=== PATIENT | male | born 1985 | race Caucasian/White ===

== ENCOUNTER 2025-02-20 23:10 | Emergency (ER) | payer SELFPAY ==
--- NOTE | ~2025-02-20 | XR_ITS ---
CHEST RADIOGRAPH CLINICAL HISTORY: chest pain, dyspnea . COMPARISON: None available TECHNIQUE: Single portable view of the chest. FINDINGS The cardiomediastinal silhouette is unremarkable. The lungs are clear. Visualized osseous structures and soft tissues are unremarkable. IMPRESSION: No focal infiltrate or effusion. Reviewed, dictated and finalized at location A.
--- NOTE | ~2025-02-20 | CT_ITS ---
Clinical Indication: Chest pain, dyspnea CT Scan of the Chest with Contrast: Technique: Contiguous sections were acquired throughout the chest after intravenous administration of 100 cc of Omnipaque 350. Dose reduction technique was used on this scan by utilizing automated expos ure control and iterative reconstruction technique. The dose-length product (DLP) was 521.60 mGy-cm. Findings: There is no evidence of any significant mediastinal, hilar or axillary lymphadenopathy. There is no f illing defect in the pulmonary arterial tree to suggest pulmonary embolus. There is no evidence of ao rtic dissection or aneurysm. There is no evidence of pleural or pericardial effusion. There is an area of mild groundglass attenuation in the left lower lobe. Right lung clear. Images through the upper abdomen reveal no abnormalities. Impression: No evidence of pulmonary embolus, aortic dissection, or aortic aneurysm. Area of groundglass attenuation left lower lobe. This could reflect focal pneumonitis, focal atelecta tic change or postinflammatory change. Correlate clinically. Reviewed, dictated and finalized at location . Impression: No evidence of pulmonary embolus, aortic dissection, or aortic aneurysm. Area of groundglass attenuation left lower lobe. This could reflect focal pneum onitis, focal atelectatic change or postinflammatory change. Correlate clinical ly.
[2025-02-20 23:09] VITALS: BP 154/84; PULSE 62; RESP 15; TEMP 36.7; O2SAT 98
[2025-02-20 23:18] VITALS: O2SAT 98
--- NOTE | 2025-02-20 23:18 | ECG_ITS ---
Test Date: 2025-02-20 23:17:11 Measurements Intervals [place] Rate: 59 P: 56 NV: 164 QRS: 3 QRSD: 115 T: 34 QT: 424 QTc: 421 Interpretive Statements SINUS BRADYCARDIA INCOMPLETE RIGHT BUNDLE BRANCH BLOCK BASELINE WANDER- V1 BORDERLINE ECG No previous ECG available for comparison Electronically Signed On 02-21-2025 05:23:03 CDT by Linwood Lewis D.O.
--- NOTE | 2025-02-20 23:24 | ED.CHESTPAIN ---
HPI - Chest Pain General Chief Complaint: Chest Pain Stated Complaint: CHEST PAIN VS PANIC ATTACK History of Present Illness HPI narrative: 39-year-old male with a reported history of hypertension presents to emergency department via EMS from work for concerns for a panic attack. Patient states he just recently started a new job at [employer]. Tonight while at work he was feeling overwhelmed with the amount of tables he had. States he began having shortness of breath and breathing rapidly. He when outside tried to catch his breath began developing chest tightness and tingling in his left hand. He called his who help to calm him down. States the episode lasted about 15 minutes. EMS was contacted the patient was transported to the ED. Upon arrival to ED he states he has very mild chest tightness and minimal tingling to the left fingers but overall his symptoms have greatly improved. He states he has never had anxiety or panic attack before this concerned that is what happened tonight. He admits to smoking cigarettes for several decades, currently smoking 1 pack per day. Patient states he has not been on medications for his hypertension since he was released from residential in 2011. He has not established with a PCP due to insurance issues. He denies personal or family history of cardiac disease or CVA. Denies abdominal pain. He does endorse a prior history of DVT back in 2011 which sounds unprovoked. He is not on anticoagulants. Related Data Allergies Allergy/AdvReac Type Severity Reaction Status Date / Time No Known Allergies Allergy Verified 02/20/25 23:20 Review of Systems Review of Systems: All systems reviewed & are unremarkable except as noted in HPI and below Exam Narrative: GENERAL: Well-appearing, well-nourished, and in no acute distress. Mildly anxious appearing HEAD: Normocephalic, atraumatic. EYES: EOMI. ENT: Nares clear, no rhinorrhea or epistaxis. Mucous membranes moist. NECK: Supple. CHEST: Clear to auscultation. No respiratory distress. HEART: Regular rate and rhythm. No murmur heard. Normal peripheral pulses. ABDOMEN: Soft, nontender, nondistended, normal active bowel sounds. EXTREMITIES: Normal range of motion. No edema. Radial and DP pulses 2+ SKIN: Warm, dry, no rash. NEURO: No focal deficits. Alert and oriented x4. Strength out of 5 in BUE and BLE. Sensation intact throughout Course Vital Signs Vital signs: Vital Signs Temperature 98.1 F 02/20/25 23:09 Pulse Rate 62 02/20/25 23:09 Respiratory Rate 15 02/20/25 23:09 Blood Pressure 154/84 H 02/20/25 23:09 Pulse Oximetry 98 02/20/25 23:09 Oxygen Delivery Room Air 02/20/25 23:09 Temperature 98.1 F 02/20/25 23:09 Pulse Rate 60 02/21/25 01:18 Respiratory Rate 15 02/21/25 01:18 Blood Pressure 131/75 02/21/25 01:18 Pulse Oximetry 95 02/21/25 01:18 Oxygen Delivery Room Air 02/20/25 23:18 MDM - Chest Pain MDM Narrative Medical decision making narrative: 39-year-old male with a history of hypertension presents to the emergency department via EMS from work for concerns for panic attack. Patient began developing rapid breathing and chest tightness after feeling overwhelmed at work. The episode lasted 15 minutes. Reports associated left hand tingling. Upon arrival to the ED the patient states he largely feels better but does have some mild residual chest tightness and left hand tingling. He is neurovascularly intact. EKG shows sinus bradycardia with a rate of 59 ppm, normal MT interval, normal QRS duration, normal QTC, no ischemic changes. Troponin is undetectable. CBC unremarkable. Chemistries with signs of mild dehydration, fluids provided. Lipase within normal limits. Chest x-ray shows no acute cardiopulmonary findings. Given chest pain with reported tingling to the left upper extremity along with history of VTE, CTA chest obtained to rule out dissection and PE obtained. CTA is unremarkable. Patient's presentation most consistent with panic attack. Chest pain is atypical. Heart score is 1. He was given Ativan with significant improvement and is resting comfortably in exam bed. Patient will be discharged home with prescription for hydroxyzine p.r.n. and PCP follow-up. Return precautions discussed. He is agreeable with the plan verbalized understanding. Discharged in stable condition. Lab Data 02/20/25 23:38 02/20/25 23:38 Labs: Lab Results 02/20/25 Range/Units 23:38 WBC 9.5 (4.5-10.0) K/mm3 RBC 5.13 (4.6-6.20) M/mm3 Hgb 15.1 (14.0-18.0) g/dL Hct 43.9 (42.0-52.0) % MCV 85.6 (80-100) fl MCH 29.4 (26-34) pg MCHC 34.4 (32-36) g/dl RDW 12.5 (11.5-14.5) % Plt Count 297 (150-375) k/mm3 MPV 9.3 (7.4-10.4) fl Immature Gran % (Auto) 0.5 (0-0.5) % Neut % (Auto) 65.9 (45.5-73.1) % Lymph % (Auto) 23.8 (18.3-44.2) % [place] % (Auto) 7.0 (2.6-8.5) % Eos % (Auto) 2.1 (0-4.4) % Baso % (Auto) 0.7 (0.2-1.2) % Lymph # (Auto) 2.27 (0.9-3.2) K/mm3 [place] # (Auto) 0.7 H (0.1-0.6) K/mm3 Eos # (Auto) 0.2 (0-0.3) K/mm3 Baso # (Auto) 0.1 (0.0-0.1) K/mm3 Abs Immat Gran (auto) 0.05 H (0.00-0.031) K/mm3 Absolute Neuts (auto) 6.3 (1.3-6.7) K/mm3 Absolute Nucleated RBC 0.000 (0.0-0.012) K/mm3 Nucleated RBC % 0.0 (0.0-0.2) % PT 12.8 (11.1-14.7) Seconds INR 0.9 APTT 33.0 (22.3-36.8) Seconds Sodium 139 (137-145) mmol/L Potassium 3.9 (3.4-5.0) mmol/L Chloride 105 (98-107) mmol/L Carbon Dioxide 21 L (22-30) mmol/L Anion Gap 13 H (4-12) mmol/L BUN 20 (9-20) mg/dL Creatinine 0.81 (0.7-1.3) mg/dL Estim Creat Clear Calc 113 ml/min Estimated GFR > 60 (59 - ) Glucose 106 (65-110) mg/dL Calcium 9.8 (8.4-10.2) mg/dL Total Bilirubin 0.5 (0.2-1.3) mg/dL AST 26 (17-59) U/L ALT 36 (6-50) U/L Alkaline Phosphatase 54 (38-126) U/L Troponin I < 0.012 (0.000-0.034) ng/mL Total Protein 8.0 (6.3-8.2) g/dL Albumin 4.8 (3.5-5.1) g/dL Lipase 110 (23-300) U/L Discharge Plan Discharge Clinical Impression: Atypical chest pain, Panic attack Patient Disposition: Home Condition: Stable Instructions: Antibiotic Form, Chest Pain (ED), Panic Attack (ED) Additional Instructions: You were evaluated in the emergency department for concerns for panic attack. Your workup here is reassuring. Your presentation is consistent with a panic attack. Please take medications as needed as directed for anxiety and panic. Follow-up closely with the primary care provider. Return to the emergency department if you develop new or worsening symptoms. Patient Language: Salvadorean Prescriptions: New hydroxyzine pamoate 50 mg capsule 50 mg PO TID PRN (Reason: anxiety) Qty: 20 0RF Follow-up/Referrals: PHYSICIAN,BUSINESS DEVELOPER [Primary Care Provider] - Jonnathan Brady MD [Physician] - Quality HEART score for chest pain patients History: slightly suspicious ECG: normal Age: < or = to 45 years Risk factors: 1 or 2 risk factors Troponin: < or = to 1x normal limit Heart score: 1
[2025-02-20] MEDS: LORazepam INJ (*CRX) 2 MG/ML VIAL 0.5 MG IV PUSH (23:37)
[2025-02-20 23:43] LABS: Basophils Absolute Auto 0.1 K/mm3 (0.0-0.1); Basophils Percent Auto 0.7 % (0.2-1.2); Eosinophils Absolute Auto 0.2 K/mm3 (0-0.3); Eosinophils Percent Auto 2.1 % (0-4.4); Hematocrit 43.9 % (42.0-52.0); Hemoglobin 15.1 g/dL (14.0-18.0); Immature Granulocyte Absolute 0.05 K/mm3 (0.00-0.031); Immature Granulocyte Percent A 0.5 % (0-0.5); Lymphocytes Absolute Auto 2.27 K/mm3 (0.9-3.2); Lymphocytes Percent Auto 23.8 % (18.3-44.2); Mean Corpuscular HGB Conc 34.4 g/dl (32-36); Mean Corpuscular Hemoglobin 29.4 pg (26-34); Mean Corpuscular Volume 85.6 fl (80-100); Mean Platelet Volume 9.3 fl (7.4-10.4); Monocytes Absolute Auto 0.7 K/mm3 (0.1-0.6); Neutrophils Absolute Auto 6.3 K/mm3 (1.3-6.7); Neutrophils Percent Auto 65.9 % (45.5-73.1); Platelet Count Result 297 k/mm3 (150-375); Red Blood Count 5.13 M/mm3 (4.6-6.20); Red Cell Distribution Width 12.5 % (11.5-14.5); White Blood Count 9.5 K/mm3 (4.5-10.0)
[2025-02-20 23:54] LABS: INR 0.9; Prothrombin Time 12.8 Seconds (11.1-14.7)
[2025-02-20 23:55] LABS: Alanine Aminotransferase 36 U/L (6-50); Albumin Level 4.8 g/dL (3.5-5.1); Alkaline Phosphatase 54 U/L (38-126); Anion Gap 13 mmol/L (4-12); Aspartate Amino Transferase 26 U/L (17-59); Bilirubin,Total 0.5 mg/dL (0.2-1.3); Blood Urea Nitrogen 20 mg/dL (9-20); Calcium 9.8 mg/dL (8.4-10.2); Carbon Dioxide 21 mmol/L (22-30); Chloride 105 mmol/L (98-107); Estimated CRCL calculation 113 ml/min; Estimated Glomerular Filt Rate > 60; Glucose 106 mg/dL (65-110); Lipase 110 U/L (23-300); Potassium 3.9 mmol/L (3.4-5.0); Sodium 139 mmol/L (137-145)
[2025-02-21] MEDS: SODIUM CHLORIDE 0.9% IV 1,000 ML 999 ML IV CONT (00:02)
[2025-02-21 00:07] LABS: Troponin I < 0.012 ng/mL (0.000-0.034)
[2025-02-21 01:18] VITALS: BP 131/75; PULSE 60; RESP 15; O2SAT 95
[2025-02-21 02:18] VITALS: BP 118/70; PULSE 62; RESP 17; TEMP 36.6; O2SAT 99
== END 2025-02-21 02:20 | disposition home or self-care (01) ==
PROVIDERS: Emergency Provider Physician Assistant
DX: R07.89 Other chest pain (principal); F41.9 Anxiety disorder, unspecified; Z86.718 Personal history of other venous thrombosis and embolism
CPT/HCPCS: 36415; 71045; 71275; 80053; 83690; 84484; 85025; 85610; 85730; 93005; 96361; 96374; 99284; J2060; J7030; Q9967

== ENCOUNTER 2025-03-12 19:42 | Emergency (ER) | payer SELFPAY ==
--- NOTE | ~2025-03-12 | XR_ITS ---
EXAMINATION: XR chest 2V Exam Date/Time: 03/12/2025 19:55 CDT HISTORY: cp/sob Comparison: 02/20/2025. RESULT: Lines, tubes, and devices: None. Lungs and pleura: Clear. Cardiomediastinal silhouette: Stable. Other: No acute osseous or upper abdominal finding. IMPRESSION: No acute cardiopulmonary process. Reviewed, dictated and finalized at location K.
[2025-03-12 19:44] VITALS: BP 152/86; PULSE 72; RESP 16; TEMP 36.6; O2SAT 98
--- NOTE | 2025-03-12 19:44 | ECG_ITS ---
Test Date: 2025-03-12 19:55:55 Measurements Intervals [place] Rate: 66 P: 16 IN: 157 QRS: 54 QRSD: 108 T: 23 QT: 385 QTc: 403 Interpretive Statements SINUS RHYTHM No previous ECG available for comparison Electronically Signed On 03-13-2025 11:52:09 CDT by Christopher Man M.D.
[2025-03-12 20:04] LABS: Basophils Absolute Auto 0.1 K/mm3 (0.0-0.1); Basophils Percent Auto 0.8 % (0.2-1.2); Eosinophils Absolute Auto 0.2 K/mm3 (0-0.3); Eosinophils Percent Auto 1.9 % (0-4.4); Hematocrit 44.1 % (42.0-52.0); Hemoglobin 15.3 g/dL (14.0-18.0); Immature Granulocyte Absolute 0.04 K/mm3 (0.00-0.031); Immature Granulocyte Percent A 0.4 % (0-0.5); Lymphocytes Absolute Auto 2.72 K/mm3 (0.9-3.2); Lymphocytes Percent Auto 25.7 % (18.3-44.2); Mean Corpuscular HGB Conc 34.7 g/dl (32-36); Mean Corpuscular Hemoglobin 29.8 pg (26-34); Mean Platelet Volume 8.9 fl (7.4-10.4); Monocytes Absolute Auto 0.6 K/mm3 (0.1-0.6); Monocytes Percent Auto 5.3 % (2.6-8.5); Neutrophils Percent Auto 65.9 % (45.5-73.1); Platelet Count Result 293 k/mm3 (150-375); Red Blood Count 5.13 M/mm3 (4.6-6.20); Red Cell Distribution Width 12.2 % (11.5-14.5); White Blood Count 10.6 K/mm3 (4.5-10.0)
[2025-03-12 20:13] LABS: Alanine Aminotransferase 30 U/L (6-50); Albumin Level 4.7 g/dL (3.5-5.1); Alkaline Phosphatase 52 U/L (38-126); Anion Gap 12 mmol/L (4-12); Aspartate Amino Transferase 29 U/L (17-59); Bilirubin,Total 0.3 mg/dL (0.2-1.3); Blood Urea Nitrogen 17 mg/dL (9-20); Calcium 9.5 mg/dL (8.4-10.2); Carbon Dioxide 22 mmol/L (22-30); Chloride 106 mmol/L (98-107); Estimated CRCL calculation 91 ml/min; Estimated Glomerular Filt Rate > 60; Glucose 99 mg/dL (65-110); Lipase 119 U/L (23-300); Potassium 3.7 mmol/L (3.4-5.0); Sodium 140 mmol/L (137-145)
[2025-03-12 20:16] LABS: Prothrombin Time 13.1 Seconds (11.1-14.7)
[2025-03-12 20:17] LABS: Partial Thromboplastin Time 29.7 Seconds (22.3-36.8)
[2025-03-12 20:26] LABS: Troponin I < 0.012 ng/mL (0.000-0.034)
[2025-03-12 22:00] VITALS: O2SAT 100
--- NOTE | 2025-03-12 22:24 | ECG_ITS ---
Test Date: 2025-03-12 22:31:51 Measurements Intervals [place] Rate: 66 P: 59 IN: 160 QRS: 7 QRSD: 122 T: 48 QT: 417 QTc: 437 Interpretive Statements SINUS RHYTHM Compared to ECG 03/12/2025 19:55:55 NO SIGNIFICANT CHANGES Electronically Signed On 03-13-2025 11:55:07 CDT by Christopher Man M.D.
--- NOTE | 2025-03-12 22:25 | ED_ITS ---
HPI - Chest Pain General Chief Complaint: Chest Pain Stated Complaint: cp, sob, numb/tingle extrems Time Seen by Provider: 03/12/25 20:52 Source: patient Mode of arrival: EMS Limitations: no limitations History of Present Illness HPI narrative: Patient is a 39-year-old male who presents the ED via EMS with report of chest pain. Patient reports he walked outside to and from the store around 7:30 p.m. tonight. He began feeling very hot upon returning home, began breathing fast and heavily. Became very anxious. He then began having some pressure throughout his left-sided chest. He felt as though he was having a heart attack. His then contacted EMS. States pressure lasted approx 15 minutes before resolving. Patient notes he has had 2 panic attacks in the past 2 weeks and feels as though today's episode was a panic attack. Upon my evaluation, patient denies chest pain or shortness of breath. No recent cough or cold symptoms, pain or swelling in legs. He was seen in the ED here for anxiety with the 1st panic attack on 02/20, had a negative workup at that time with negative troponins, negative CTA. He was discharged with a prescription for hydroxyzine, however he states he was unable to afford this at the pharmacy. He is not on any other medications for anxiety. Denies previous history of cardiac disease. He is a smoker. Related Data Allergies Allergy/AdvReac Type Severity Reaction Status Date / Time No Known Allergies Allergy Verified 03/12/25 19:43 Review of Systems 2 Review of Systems: All systems reviewed & are unremarkable except as noted in HPI. All systems reviewed & are unremarkable except as noted in HPI and below Exam 2 Narrative: GENERAL: Well appearing, well-nourished, non-toxic, in no acute distress. HEAD: Normocephalic, atraumatic. ENT: Diffuse dental decay and scattered dental caries RESPIRATORY: Airway patent, respirations nonlabored. Clear to auscultation bilaterally, no rales, rhonchi, wheezing. CARDIOVASCULAR: Regular rate and rhythm without murmurs, rubs, or gallops. MUSCULOSKELETAL: Moves all extremities. No gross deformities. No peripheral edema. SKIN: Warm, dry, normal color. NEURO: A&O X3. Speech clear. Cranial nerves II-XII grossly intact. Steady gait. No ataxic movements. PSYCHIATRIC: Appropriate mood and affect. Normal interaction. Course Vital Signs Vital signs: Vital Signs Temperature 97.8 F 03/12/25 19:44 Pulse Rate 72 03/12/25 19:44 Respiratory Rate 16 03/12/25 19:44 Blood Pressure 152/86 H 03/12/25 19:44 Pulse Oximetry 98 03/12/25 19:44 Oxygen Delivery Room Air 03/12/25 19:44 Temperature 97.8 F 03/12/25 19:44 Pulse Rate 61 03/12/25 22:51 Respiratory Rate 14 03/12/25 22:51 Blood Pressure 122/77 03/12/25 22:51 Pulse Oximetry 100 03/12/25 22:51 Oxygen Delivery Room Air 03/12/25 22:00 MDM - Chest Pain MDM Narrative Medical decision making narrative: Patient presented to ED with left-sided chest pain, shortness of breath, anxiety. History of recent panic attacks. Upon my evaluation, patient asymptomatic. Feels back to his baseline. Seen in the ED here 02/20 with similar sx's, negative Troponins/CTA of chest at that time. EKG today with NSR, no concerning ischemic changes Troponin undetectable x2 HEART Score = 1 based on smoking Hx. No other significant cardiac RFs. D-dimer WNL CXR is clear Remainder of basic laboratory studies are unremarkable. Overall workup reassuring. Low suspicion for ACS. Suspect anxiety to be contributing to patient's symptoms. Advised patient to follow-up with primary care doctor and Cardiology for further outpatient management. Discussed strict return precautions. Patient is in agreement with plan. Discharged in stable condition. Differential Diagnosis Differential diagnosis: Likely pneumothorax, stable angina, unstable angina pectoris, atypical chest pain, costochondritis, chest pain and other (anxiety, panic attack, PE) Medical Records Data Attestation: I reviewed the patient's medical records. Lab Data Attestation: I reviewed the patient's lab results. 03/12/25 19:49 03/12/25 19:49 Labs: Lab Results 03/12/25 03/12/25 Range/Units 19:49 22:22 WBC 10.6 H (4.5-10.0) K/mm3 RBC 5.13 (4.6-6.20) M/mm3 Hgb 15.3 (14.0-18.0) g/dL Hct 44.1 (42.0-52.0) % MCV 86.0 (80-100) fl MCH 29.8 (26-34) pg MCHC 34.7 (32-36) g/dl RDW 12.2 (11.5-14.5) % Plt Count 293 (150-375) k/mm3 MPV 8.9 (7.4-10.4) fl Immature Gran % (Auto) 0.4 (0-0.5) % Neut % (Auto) 65.9 (45.5-73.1) % Lymph % (Auto) 25.7 (18.3-44.2) % [place] % (Auto) 5.3 (2.6-8.5) % Eos % (Auto) 1.9 (0-4.4) % Baso % (Auto) 0.8 (0.2-1.2) % Lymph # (Auto) 2.72 (0.9-3.2) K/mm3 [place] # (Auto) 0.6 (0.1-0.6) K/mm3 Eos # (Auto) 0.2 (0-0.3) K/mm3 Baso # (Auto) 0.1 (0.0-0.1) K/mm3 Abs Immat Gran (auto) 0.04 H (0.00-0.031) K/mm3 Absolute Neuts (auto) 7.0 H (1.3-6.7) K/mm3 Absolute Nucleated RBC 0.000 (0.0-0.012) K/mm3 Nucleated RBC % 0.0 (0.0-0.2) % PT 13.1 (11.1-14.7) Seconds INR 1.0 APTT 29.7 (22.3-36.8) Seconds D-Dimer 0.30 (<0.48) ug/mL Sodium 140 (137-145) mmol/L Potassium 3.7 (3.4-5.0) mmol/L Chloride 106 (98-107) mmol/L Carbon Dioxide 22 (22-30) mmol/L Anion Gap 12 (4-12) mmol/L BUN 17 (9-20) mg/dL Creatinine 1.02 (0.7-1.3) mg/dL Estim Creat Clear Calc 91 ml/min Estimated GFR > 60 (59 - ) Glucose 99 (65-110) mg/dL Calcium 9.5 (8.4-10.2) mg/dL Total Bilirubin 0.3 (0.2-1.3) mg/dL AST 29 (17-59) U/L ALT 30 (6-50) U/L Alkaline Phosphatase 52 (38-126) U/L Troponin I < 0.012 < 0.012 (0.000-0.034) ng/mL Total Protein 7.0 (6.3-8.2) g/dL Albumin 4.7 (3.5-5.1) g/dL Lipase 119 (23-300) U/L Imaging Data Attestation: I personally reviewed and interpreted this imaging study as follows: Radiologist's impression: ITS Impressions Chest X-Ray 03/12/25 20:04 IMPRESSION: No acute cardiopulmonary process. ECG Data EKG #1: Attestation: I personally reviewed and interpreted this ECG as follows: ECG completion date: 03/12/25 ECG completion time: 19:55 EKG Interpretation: normal rate (66), sinus rhythm and no ST changes Discharge Plan Discharge Clinical Impression: Atypical chest pain, Anxiety Patient Disposition: Home Condition: Stable Instructions: Antibiotic Form, Chest Pain (ED), Anxiety (ED) Additional Instructions: Your workup here was reassuring against a cardiac cause of your chest pain. Follow-up with your primary care doctor and/or Cardiology for further evaluation. Return to the ED if you experience worsening or severe symptoms, recurrent chest pain, difficulty breathing, unable to keep down food or drink, pain or swelling in your legs, or any other symptoms of concern. Patient Language: Indonesian Prescriptions: No Action hydroxyzine pamoate 50 mg capsule 50 mg PO TID PRN (Reason: anxiety) Qty: 20 0RF Follow-up/Referrals: Cayetano Beebe MD [Physician] - (CARDIOLOGY) PHYSICIAN,MAINTENANCE AND ENGINEERING MANAGER [Primary Care Provider] - Jonnathan Brady MD [Physician] - (PRIMARY CARE) Time of Disposition: 23:14 Quality HEART score for chest pain patients History: slightly suspicious ECG: normal Age: < or = to 45 years Risk factors: 1 or 2 risk factors Troponin: < or = to 1x normal limit Heart score: 1
[2025-03-12 22:51] VITALS: BP 122/77; PULSE 61; RESP 14; O2SAT 100
[2025-03-12 23:04] LABS: Troponin I < 0.012 ng/mL (0.000-0.034)
== END 2025-03-12 23:21 | disposition home or self-care (01) ==
PROVIDERS: Emergency Medicine; Emergency Provider Physician Assistant
DX: R07.89 Other chest pain (principal); F41.9 Anxiety disorder, unspecified
CPT/HCPCS: 36415; 71046; 80053; 83690; 84484; 85025; 85380; 85610; 85730; 93005; 99284